=== PATIENT | female | born 1965 | race Caucasian/White ===

== ENCOUNTER 2017-04-25 12:16 | Outpatient (CLI) | payer BC ==
--- NOTE | 2017-04-25 13:29 | MMO ---
BILATERAL SCREENING MAMMOGRAM: DATE: 04/25/2017 HISTORY: A 51-year-old female for screening mammography. COMPARISON: 12/01/2009. FINDINGS: Bilateral MLO and CC views of the breasts show scattered fibroglandular breast tissue. Benign-appea ring popcorn type calcifications are seen in the right breast. There is no evidence of suspicious m ass, suspicious cluster of microcalcifications, or area of architectural distortion. Interpretation of this mammogram was performed with the assistance of computer-aided detection. IMPRESSION: BIRADS 2: Benign Finding(s) Annual screening mammography is recommended. POS: ANGELA
== END 2017-04-25 12:17 | disposition home or self-care (01) ==
LOC: MAMMO 12:16
PROVIDERS: ATTEND Family Medicine
DX: Z12.31 Encounter for screening mammogram for malignant neoplasm of breast (principal)
CPT/HCPCS: 77067; G0202

== ENCOUNTER 2017-11-21 14:51 | Outpatient (CLI) | payer BC, OTHER ==
--- NOTE | 2017-11-21 16:20 | ULT ---
BILATERAL LOWER EXTREMITY DOPPLER WITH SPECTRAL ANALYSIS AND COLOR FLOW EVALUATION 11/21/17 HISTORY: Bilateral lower extremity edema. Symptoms have been present for approximately two weeks. Elevated D-d taj. FINDINGS: Lazcano scale, color flow, doppler evaluation with spectral analysis of the bilateral lower extremity ve nous structures is performed with 2D imaging. The bilateral lower extremity common femoral, superfici al femoral, popliteal, posterior tibial and most proximal greater saphenous and profunda femoral vein s are imaged. There is normal lumen compressibility, flow, and augmentation in the visualized deep venous structure s bilateral lower extremities. IMPRESSION: No evidence of a DVT involving the visualized deep venous structures of bilateral lower extremities. POS: ANGELA
== END 2017-11-21 14:52 | disposition home or self-care (01) ==
LOC: ULT 14:51
PROVIDERS: ATTEND Family Medicine
DX: R60.9 Edema, unspecified (principal)
CPT/HCPCS: 93970

== ENCOUNTER 2019-08-08 19:33 | Emergency (ER) | payer BC ==
[~2019-08-08 19:33] MED LIST: Iopamidol-370 76% 500 ML 1 ML ONE
[2019-08-08] MEDS ORDERED: Ketorolac Tromethamine 30 MG/ML VIAL ONE (20:29)
[2019-08-08] MEDS ORDERED: Morphine 4 MG/ML VIAL ONE (20:29)
[2019-08-08] MEDS ORDERED: Ondansetron PF 4 MG/2 ML Vial ONE (20:29)
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
[2019-08-08 21:08] LABS: #Basophils 0.1 thou/uL (0.0-0.2); #Eosinphils 0.3 thou/uL (0.0-0.7); #Lymphocytes 2.4 thou/uL (1.20-3.40); #Monocytes 0.5 thou/uL (0.11-0.59); #Neutrophils 4.9 thou/uL (1.40-6.50); %Basophils 0.9 % (0.0-1.0); %Eosinophils 3.7 % (0.0-10.0); %Lymphocytes 29.5 % (21.0-51.0); %Monocytes 6.3 % (0.0-10.0); %Neutrophils 59.6 % (42.0-75.0); Hemoglobin 13.1 g/dL (12.0-16.0); Mean Corpuscular HGB CONC 33.1 g/dL (32.0-36.0); Mean Corpuscular Hemoglobin 29.6 pg (27.0-31.0); Mean Corpuscular Volume 89.4 fL (78.0-98.0); Mean Platelet Volume 8.5 fL (7.4-10.4); Platelet Count 282 thou/uL (130-400); RBC Distribution Width 12.2 % (11.5-14.5); Red Blood Cell (RBC) Count 4.44 mill/uL (4.20-5.40); White Blood Cell (WBC) Count 8.2 thou/uL (4.8-10.8)
[2019-08-08 21:13] LABS: Bilirubin Negative (Negative); Blood, Urine Negative (Negative); Clarity Clear (Clear); Glucose, Urine (Dipstick) Normal (Negative); Leukocyte 75 Leu/uL (Negative); Nitrite Negative (Negative); Protein, Urine (Dipstick) Negative (Neg-Trace); RBC/HPF 0-3 HPF (0-3); Renal Epithelial 0-3 HPF (None Seen); Squamous Epithelial 0-3 HPF (0-3); Urobilinogen Normal mg/dL (Less than 2)
[2019-08-08 21:21] LABS: Bacteria/HPF Rare-Few HPF (None Seen)
[2019-08-08 21:35] LABS: ALT (SGPT) 13 U/L (8-55); AST (SGOT) 12 U/L (5-34); Albumin 3.9 g/dL (3.5-5.0); Alkaline Phosphatase 79 U/L (40-110); Anion Gap 12 mmol/L (10-20); BUN (Urea Nitrogen) 12 mg/dL (9.8-20.1); Bilirubin, Total 0.3 mg/dL (0.2-1.2); Calc. Creatinine Clearance 0 mL/min (70-130); Carbon Dioxide 24 mmol/L (22-29); Chloride 106 mmol/L (98-107); Estimated GFR-MDRD 74; Globulin 2.9 g/dL (2.4-3.5); Glucose 99 mg/dL (70-105); Potassium 3.9 mmol/L (3.5-5.1); Protein, Total 6.8 g/dL (6.0-8.3); Sodium 138 mmol/L (136-145)
== END 2019-08-08 21:38 | disposition home or self-care (01) ==
LOC: ERS 19:33
DX: S60.221A Contusion of right hand, initial encounter (principal); M54.5 Low back pain; F41.9 Anxiety disorder, unspecified; V40.6XXA Car passenger injured in collision with pedestrian or animal in traffic accident, initial encounter
CPT/HCPCS: 71045; 74177; 80053; 81003; 81015; 85025; 96374; 96375; J1885; J2270; J2405; Q9967

== ENCOUNTER 2019-11-15 13:58 | Outpatient (CLI) | payer BC ==
--- NOTE | 2019-11-15 14:59 | MMO ---
Bilateral MAMMO Bilat Screen [facility]DI[facility]TRUNG. CLINICAL HISTORY: Patient is 53 years old and is seen for screening. The patient has no family history of breast cancer. The patient has no personal history of cancer. VIEWS: The views performed were: bilateral craniocaudal with tomosynthesis and bilateral mediolateral oblique with tomosynthesis. FILMS COMPARED: The present examination has been compared to prior imaging studies performed at [facility] on 12/01/2009, 12/05/2009 and 04/25/2017. This study has been interpreted with the assistance of computer-aided detection. MAMMOGRAM FINDINGS: There are scattered fibroglandular densities. There are two stable masses seen in the right breast. There are no suspicious masses, suspicious calcifications, or new areas of architectural distortion. IMPRESSION: THERE IS NO MAMMOGRAPHIC EVIDENCE OF MALIGNANCY. A ROUTINE FOLLOW-UP MAMMOGRAM IN 1 YEAR IS RECOMMENDED. THE RESULTS OF THIS EXAM WERE SENT TO THE PATIENT. ACR BI-RADS Category 2 - Benign finding MAMMOGRAPHY NOTE: 1. A negative mammogram report should not delay a biopsy if a dominant of clinically suspicious mass is present. 2. Approximately 10% to 15% of breast cancers are not detected by mammography. 3. Adenosis and dense breasts may obscure an underlying neoplasm. Reported by: SENG MERAZ MD Electonically Signed: [id number]
== END 2019-11-15 13:59 | disposition home or self-care (01) ==
LOC: BICMAMMO 13:58
PROVIDERS: ATTEND Family Medicine
DX: Z12.31 Encounter for screening mammogram for malignant neoplasm of breast (principal)
CPT/HCPCS: 77063; 77067

== ENCOUNTER 2020-01-03 11:27 | Outpatient (CLI) | payer BC ==
--- NOTE | 2020-01-03 13:32 | RAD ---
LEFT KNEE 2 VIEWS: HISTORY: Prepatellar bursitis. FINDINGS/IMPRESSION: No osseous abnormality. No joint effusion. Mild prepatellar soft tissue fullness may correspond to history of prepatellar bursitis. POS: AGW
== END 2020-01-03 11:28 | disposition home or self-care (01) ==
LOC: BICRAD 11:27
PROVIDERS: ATTEND Family Medicine
DX: M70.42 Prepatellar bursitis, left knee (principal)

== ENCOUNTER 2020-01-17 12:44 | Outpatient (CLI) | payer BC ==
--- NOTE | 2020-01-17 13:18 | ULT ---
EXAM: Left lower extremity venous Doppler US HISTORY: Left lower extremity pain FINDINGS: Grayscale, color-flow, Doppler evaluation, spectral analysis of the left lower extremity venous struc tures is performed with 2-D imaging. The left common femoral, superficial femoral, popliteal, posterior tibial, proximal greater saphenous and profunda femoral veins are imaged. There is normal luminal compressibility, flow, and augmentation the visualized deep venous structures of the left lower extremity. IMPRESSION: No evidence of a deep vein thrombosis in the left lower extremity.
== END 2020-01-17 12:45 | disposition home or self-care (01) ==
LOC: BICULT 12:44
PROVIDERS: ATTEND Family Medicine
DX: M79.605 Pain in left leg (principal)

== ENCOUNTER 2020-04-07 09:32 | Outpatient (CLI) | payer BC ==
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
--- NOTE | 2020-04-07 10:04 | RAD ---
XR Ankle Lt 3 View STANDARD INDICATION: Left ankle pain COMPARISON: None. FINDINGS: Bones: There is enthesopathic change off the plantar calcaneus. No acute fracture or subluxation is d emonstrated. Ankle mortise: Symmetric. Talar Dome: Intact. Subtalar joint: Normal. Visualized hindfoot: Normal. Periarticular soft tissues: Normal. IMPRESSION: 1. No acute fracture or subluxation demonstrated.
== END 2020-04-07 09:33 | disposition home or self-care (01) ==
LOC: BICRAD 09:32
PROVIDERS: ATTEND Family Medicine
DX: M79.672 Pain in left foot (principal)

== ENCOUNTER 2020-11-17 08:56 | Outpatient (CLI) | payer BC | END 2020-11-17 08:57 | disposition home or self-care (01) | LOC: BICMAMMO 08:56 | PROVIDERS: ATTEND Family Medicine | DX: Z12.31 Encounter for screening mammogram for malignant neoplasm of breast (principal) | CPT/HCPCS: 77063; 77067 ==

== ENCOUNTER 2021-05-30 10:11 | Outpatient (CLI) | payer BC | END 2021-05-30 10:12 | disposition home or self-care (01) | LOC: BICRAD 10:11 | PROVIDERS: ATTEND Family Medicine | DX: M25.532 Pain in left wrist (principal) ==

== ENCOUNTER 2021-07-25 18:58 | Observation (INO) | payer BC ==
[2021-07-25 19:40] LABS: #Eosinphils 0.3 thou/uL (0.0-0.7); #Monocytes 0.5 thou/uL (0.11-0.59); #Neutrophils 12.5 thou/uL (1.40-6.50); %Basophils 0.1 % (0.0-1.0); %Eosinophils 2.1 % (0.0-10.0); %Lymphocytes 13.1 % (21.0-51.0); %Monocytes 3.4 % (0.0-10.0); %Neutrophils 81.3 % (42.0-75.0); Hemoglobin 12.6 g/dL (12.0-16.0); Mean Corpuscular HGB CONC 34.8 g/dL (32.0-36.0); Mean Corpuscular Hemoglobin 30.8 pg (27.0-31.0); Mean Corpuscular Volume 88.5 fL (78.0-98.0); Mean Platelet Volume 7.9 fL (7.4-10.4); Platelet Count 310 thou/uL (130-400); RBC Distribution Width 12.5 % (11.5-14.5); Red Blood Cell (RBC) Count 4.08 mill/uL (4.20-5.40); White Blood Cell (WBC) Count 15.4 thou/uL (4.8-10.8)
[2021-07-25] MEDS ORDERED: Morphine 4 MG/ML VIAL ONE (19:41)
[2021-07-25] MEDS ORDERED: Ondansetron PF 4 MG/2 ML Vial ONE (19:41)
[2021-07-25 20:02] LABS: Anion Gap 12 mmol/L (10-20); BUN (Urea Nitrogen) 17 mg/dL (9.8-20.1); Calc. Creatinine Clearance 0 mL/min (70-130); Calcium 9.4 mg/dL (7.8-10.44); Carbon Dioxide 24 mmol/L (22-29); Chloride 108 mmol/L (98-107); Glucose 121 mg/dL (70-105); Potassium 3.9 mmol/L (3.5-5.1); Sodium 140 mmol/L (136-145)
[2021-07-25] MEDS ORDERED: Ondansetron PF 4 MG/2 ML Vial IVP PRN (20:08)
[2021-07-25] MEDS ORDERED: Dextrose 5% in Water 1,000 ML IV PRN (20:08)
[2021-07-25] MEDS ORDERED: Dextrose 50% Abboject 50 ML SYRINGE SLOW IVP PRN (20:08)
[2021-07-25] MEDS ORDERED: Morphine 4 MG/ML VIAL SLOW IVP PRN (20:08)
[2021-07-25] MEDS ORDERED: Morphine 2 MG/ML VIAL SLOW IVP PRN (20:08)
[2021-07-25] MEDS ORDERED: HYDROcodone/Acetaminophen 10/325 mg Tablet PO PRN ×2 (20:08)
[2021-07-25] MEDS ORDERED: Promethazine HCl 25 MG/ML VIAL IM PRN (20:08)
[2021-07-25] MEDS ORDERED: HYDROcodone/Acetaminophen 5/325 mg Tablet PO PRN ×2 (20:16)
[2021-07-25] MEDS: Famotidine/PF 20 mg/2ml Vial SLOW IVP SCH (23:25)
[2021-07-25] MEDS: Famotidine 20 MG TAB PO SCH (23:25)
[2021-07-25 23:36] LABS: SARS-CoV-2 NAA Rapid Test DETECTED (NotDetected)
[2021-07-26] MEDS ORDERED: Xylocaine 1% w/ Epi 1:100K 10 ML VIAL ONE (08:25)
[2021-07-26] MEDS ORDERED: Bupivacaine 0.25% 10 ML VIAL ONE (08:25)
[2021-07-26] MEDS: Famotidine/PF 20 mg/2ml Vial SLOW IVP SCH (08:37)
[2021-07-26] MEDS: Famotidine 20 MG TAB PO SCH (08:37)
[2021-07-26 09:21] LABS: #Eosinphils 0.3 thou/uL (0.0-0.7); #Lymphocytes 2.4 thou/uL (1.20-3.40); #Monocytes 0.7 thou/uL (0.11-0.59); #Neutrophils 7.1 thou/uL (1.40-6.50); %Basophils 0.1 % (0.0-1.0); %Lymphocytes 22.7 % (21.0-51.0); %Monocytes 6.4 % (0.0-10.0); %Neutrophils 67.8 % (42.0-75.0); Hemoglobin 12.7 g/dL (12.0-16.0); Mean Corpuscular HGB CONC 33.3 g/dL (32.0-36.0); Mean Corpuscular Hemoglobin 29.6 pg (27.0-31.0); Mean Corpuscular Volume 88.8 fL (78.0-98.0); Platelet Count 304 thou/uL (130-400); RBC Distribution Width 12.6 % (11.5-14.5); White Blood Cell (WBC) Count 10.5 thou/uL (4.8-10.8)
[2021-07-26 09:38] LABS: PTT 33.5 sec (22.9-36.1)
[2021-07-26 09:43] LABS: Anion Gap 12 mmol/L (10-20); BUN (Urea Nitrogen) 15 mg/dL (9.8-20.1); Calc. Creatinine Clearance 0 mL/min (70-130); Calcium 9.1 mg/dL (7.8-10.44); Carbon Dioxide 25 mmol/L (22-29); Chloride 107 mmol/L (98-107); Glucose 101 mg/dL (70-105); Sodium 140 mmol/L (136-145)
[2021-07-26] MEDS ORDERED: Fentanyl 100 MCG/2 ML VIAL ONE (10:38)
[2021-07-26] MEDS ORDERED: Famotidine/PF 20 mg/2ml Vial ONE (10:39)
[2021-07-26] MEDS ORDERED: SUGAMMADEX SODIUM 200 MG/2 ML VIAL ONE (10:59)
[2021-07-26] MEDS ORDERED: Levofloxacin 500 mg/D5W 100 ml Premix Bag ONE (11:07)
[2021-07-26] MEDS ORDERED: Dexamethasone 20 MG/5 ML VIAL ONE (11:26)
[2021-07-26] MEDS ORDERED: Lidocaine 1% PF 5 ML VIAL ONE (11:26)
[2021-07-26] MEDS ORDERED: Ondansetron PF 4 MG/2 ML Vial ONE (11:26)
[2021-07-26] MEDS ORDERED: PHENYLEPHRINE-NS 100 MCG/ML 10 ML SYRINGE ONE (11:26)
[2021-07-26] MEDS ORDERED: Ketorolac Tromethamine 30 MG/ML VIAL ONE (11:26)
[2021-07-26] MEDS ORDERED: Rocuronium Bromide 10 MG/ML (10ML VIAL) ONE (11:26)
[2021-07-26] MEDS ORDERED: Metoclopramide HCl 10 MG/2 ML VIAL ONE (11:26)
[2021-07-26] MEDS ORDERED: PROPOFOL 200 MG/20 ML VIAL ONE (11:26)
[2021-07-26] MEDS ORDERED: Promethazine HCl 25 MG/ML VIAL IM PRN (12:10)
[2021-07-26] MEDS ORDERED: Ondansetron HCl/PF 4 MG/2 ML Vial IVP PRN (12:10)
[2021-07-26] MEDS ORDERED: Promethazine HCl 25 MG/ML VIAL IVPB PRN (12:10)
[2021-07-26] MEDS ORDERED: Lidocaine 2% Jelly 5 ML TUBE ONE (12:13)
[2021-07-26 16:08] VITALS: BP 123/70; TEMP 98.1
[2021-07-26] MEDS ORDERED: Docusate Sodium 100 MG/10 ML UDCUP PER TUBE SCH (21:00)
[2021-07-27] MEDS ORDERED: Polyethylene Glycol 3350 17 GM Packet PER TUBE SCH (09:00)
== END 2021-07-26 17:55 | disposition home or self-care (01) ==
LOC: ERS 18:58 → ERHOLD 20:08 → SURG A 22:29
PROVIDERS: ADMIT Surgery; ATTEND Surgery
PROC: 06BY3ZC Excision of Hemorrhoidal Plexus, Percutaneous Approach (ICD-10-PCS; principal; 2021-07-26)
DX: K64.5 Perianal venous thrombosis (principal); K64.8 Other hemorrhoids; U07.1 COVID-19; J30.1 Allergic rhinitis due to pollen; Z91.048 Other nonmedicinal substance allergy status
CPT/HCPCS: 36415; 80048; 85025; 85610; 85730; 86850; 86900; 86901; 88304; 96374; 96375; G0378; J1100; J1885; J1956; J2270; J2405; J2704; J2765; J3010; S0020; S0028; U0002

== ENCOUNTER 2022-08-05 14:58 | Outpatient (CLI) | payer BC | END 2022-08-05 14:59 | disposition home or self-care (01) | LOC: BICMAMMO 14:58 | PROVIDERS: ATTEND Family Medicine | DX: Z12.31 Encounter for screening mammogram for malignant neoplasm of breast (principal) | CPT/HCPCS: 77063; 77067 ==

== ENCOUNTER 2022-09-27 11:39 | Outpatient (CLI) | payer BC | END 2022-09-27 11:40 | disposition home or self-care (01) | LOC: BICCT 11:39 | PROVIDERS: ATTEND Neurological Surgery | DX: M54.16 Radiculopathy, lumbar region (principal); M48.061 Spinal stenosis, lumbar region without neurogenic claudication; M48.07 Spinal stenosis, lumbosacral region | CPT/HCPCS: 72131 ==

== ENCOUNTER 2024-07-28 15:12 | Outpatient (CLI) | payer BC | END 2024-07-28 15:13 | disposition home or self-care (01) | LOC: BICMAMMO 15:12 | PROVIDERS: ATTEND Nurse Practitioner Family | DX: Z12.31 Encounter for screening mammogram for malignant neoplasm of breast (principal) | CPT/HCPCS: 77063; 77067 ==

== ENCOUNTER 2025-05-25 09:32 | Outpatient (CLI) | payer BC | END 2025-05-25 09:33 | disposition home or self-care (01) | LOC: SCSBT 09:32 | PROVIDERS: ATTEND Nurse Practitioner Family | DX: Z78.0 Asymptomatic menopausal state (principal) | CPT/HCPCS: 77080 ==